=== PATIENT | male | born 1945 | race Caucasian/White ===

== ENCOUNTER 2020-09-14 15:06 | Emergency (ER) | payer MEDICARE, OTHER ==
[2020-09-14] MEDS ORDERED: HYDROmorphone 1 MG/ML Syringe IM ONE (15:18)
[2020-09-14 15:58] VITALS: BP 190/85; PULSE 59
--- NOTE | 2020-09-14 16:02 | CT ---
PROCEDURE INFORMATION: Exam: CT Chest Without Contrast; Diagnostic Exam date and time: 09/14/2020 3:25 PM Age: 75 years old Clinical indication: Injury or trauma; Fall; Blunt trauma (contusions or hematomas); Prior surgery; Additional info: Fall 1 week ago, severe RT chest pain p cough TECHNIQUE: Imaging protocol: Diagnostic computed tomography of the chest without contrast. Radiation optimization: All CT scans at this facility use at least one of these dose optimization techniques: automated exposure control; mA and/or kV adjustment per patient size (includes targeted exams where dose is matched to clinical indication); or iterative reconstruction. COMPARISON: No relevant prior studies available. FINDINGS: Lungs: Unremarkable. No consolidation. No masses. Mild bilateral lower lobe atelectasis or scarring. Pleural spaces: Unremarkable. No pneumothorax. No pleural effusion. Heart: Median sternotomy wires. Coronary artery calcifications.. No cardiomegaly. No pericardial effusion. Pulmonary arteries: Main pulmonary artery, right and left pulmonary arteries upper limits in size. Aorta: Atherosclerotic calcification. Ascending aorta prominent at 3.9 cm. Lymph nodes: Unremarkable. No enlarged lymph nodes. Stomach and bowel: Normal stomach. No dilatation or obstruction. Scattered diverticulosis. Bones/joints: Right nondisplaced right 8th rib fracture. Bridging T5-T12 spondylosis predominating on the right the T6-7 and T 8-9. No acute vertebral body fracture. Soft tissues: Unremarkable. IMPRESSION: 1. Nondisplaced right posterior 8th rib fracture. No lung contusion or pneumothorax. 2. Thoracic spondylosis. 3. Mild basilar atelectasis or scarring. 4. Mild cardiomegaly and pulmonary arteries upper limits in size. Coronary artery calcifications. Median sternotomy wires. 5. Prominent 3.9 cm ascending aorta.
[2020-09-14] MEDS ORDERED: Lidocaine 5% Oint 35.44 GM Tube TOP ONE (16:12)
--- NOTE | 2020-09-14 16:22 | EDM.PDOC ---
"Scribed by Ruma Ravi 09/14/20 [id number] for Ebony Campbell MD ED HPI GENERAL MEDICAL PROBLEM - General Chief Complaint: Chest Pain Stated Complaint: FELL & HURT RIBS Time Seen by Provider: 09/14/20 15:20 Source of Information: Reports: Patient, RN, RN Notes Reviewed History Limitations: Reports: No Limitations - History of Present Illness INITIAL COMMENTS - FREE TEXT/NARRATIVE: Patient presents to ED by POV. States he fell a week ago and injured his ribs. Today he started coughing and had severe pain. No fever or chills. Rates his pain as 9/10. Onset: Today Duration: Getting Worse Location: Reports: Chest Quality: Reports: Ache Severity: Moderate Improves with: Reports: None Worsens with: Reports: None Associated Symptoms: Reports: No Other Symptoms Right Lower Pain Score (Numeric/FACES): 10 - Related Data Allergies Allergy/AdvReac Type Severity Reaction Status Date / Time [id number]-[id number]-[id number] Reductase Allergy Muscle Verified 09/14/20 15:59 Inhibitor Aches Home Meds: Home Meds Aspirin 81 mg PO DAILY 01/19/17 [History] Fish Oil/[place]-3 Fatty Acids [Fish Oil 1,000 MG] 1,000 mg PO DAILY 01/19/17 [History] Gemfibrozil 600 mg PO BID 01/19/17 [History] Multivitamin [Men's Multi-Vitamin] 1 tab PO DAILY 01/19/17 [History] Nitroglycerin [Nitrostat] 0.4 mg SL ASDIRECTED 01/19/17 [History] Ubidecarenone [Co Q-10] 200 mg PO DAILY 01/19/17 [History] glipiZIDE [Glucotrol] 5 mg PO DAILY 01/19/17 [History] Cholecalciferol (Vitamin D3) [Vitamin D3] 1,000 unit PO DAILY 12/21/18 [History] Clopidogrel [Plavix] 75 mg PO DAILY 12/21/18 [History] Insulin Glargine,Hum.Rec.Anlog [Lantus Solostar] 25 units INJECT BEDTIME 12/21/18 [History] Isosorbide Mononitrate [Isosorbide Mononitrate ER] 30 mg PO DAILY 12/21/18 [History] Labetalol [Normodyne] 50 mg PO BID 12/21/18 [History] Melatonin/Pyridoxine HCl (B6) [Melatonin 5 mg Tablet] 5 mg PO BEDTIME 12/21/18 [History] Pravastatin [Pravachol] 80 mg PO BEDTIME 12/21/18 [History] amLODIPine Besylate/Benazepril [Lotrel 10-40 MG] 10 - 40 mg PO DAILY 12/21/18 [History] metFORMIN [Glucophage] 500 mg PO BIDMEALS 12/21/18 [History] Past Medical History HEENT History: Reports: Impaired Vision Other HEENT History: wears glasses Cardiovascular History: Reports: Bypass, CAD, High Cholesterol, Hypertension, [place], PTCA, Stents Respiratory History: Reports: Sleep Apnea Genitourinary History: Reports: Prostate Disorder Neurological History: Reports: CVA Other Neuro History: Carotid stent Endocrine/Metabolic History: Reports: Diabetes, Type II - Past Surgical History HEENT Surgical History: Reports: None Cardiovascular Surgical History: Reports: Coronary Artery Bypass, Coronary Artery Stent Other Cardiovascular Surgeries/Procedures: CABG-2000, Ptca with stent 12/31/2016,10/15/2018, 11/03/2018 Social & Family History - Family History Family Medical History: No Pertinent Family History - Living Situation & Occupation Living situation: Reports: with Spouse Occupation: Retired ED ROS GENERAL - Review of Systems Review Of Systems: Comprehensive ROS is negative, except as noted in HPI. ED EXAM, GENERAL - Physical Exam Exam: See Below Exam Limited By: No Limitations General Appearance: Alert, WD/WN, No Apparent Distress Throat/Mouth: Normal Inspection, Normal Voice, No Airway Compromise Head: Atraumatic, Normocephalic Neck: Normal Inspection, Supple, Non-Tender, Full Range of Motion Respiratory/Chest: No Respiratory Distress, Lungs Clear, No Accessory Muscle Use, Decreased Breath Sounds, Other (focally tender at right posterior and lateral middle-lower ribs). No: Crackles, Rales, Rhonchi, Wheezing, Stridor Cardiovascular: Normal Peripheral Pulses, Regular Rate, Rhythm, No Edema GI/Abdominal: Normal Bowel Sounds, Soft, Non-Tender, No Organomegaly, No Distention, No Abnormal Bruit, No Mass Back Exam: Normal Inspection, Full Range of Motion. No: CVA Tenderness (L), CVA Tenderness (R) Extremities: Normal Inspection, Normal Range of Motion, Non-Tender, Normal Capillary Refill, No Pedal Edema Neurological: Alert, Oriented, CN II-XII Intact, Normal Cognition, Normal Gait, No Motor/Sensory Deficits Psychiatric: Normal Affect, Normal Mood Skin Exam: Warm, Dry, Intact, Normal Color, No Rash Course - Vital Signs Last Recorded V/S: Last Vital Signs Temp 97.4 F 09/14/20 15:54 Pulse 59 L 09/14/20 15:54 Resp 20 09/14/20 15:54 BP 190/85 H 09/14/20 15:54 Pulse Ox 99 09/14/20 15:54 - Orders/Labs/Meds Meds: Medications Discontinued Medications Generic Name Dose Route Start Last Admin Trade Name Freq PRN Reason Stop Dose Admin Hydromorphone HCl 1 mg 09/14/20 15:18 09/14/20 15:22 Dilaudid IM 09/14/20 15:19 1 mg ONETIME ONE Administration Lidocaine HCl 15 gm 09/14/20 16:12 Lidocaine 5% TOP 09/14/20 16:13 ONETIME ONE - Radiology Interpretation Free Text/Narrative:: [facility] Final Radiology Report Call: [phone] assistance Online chat: [email or web address] Name: KAR PAGE Age: 75Years M Date: 09/14/2020 SSN: -- : [id number] Study: CT CHEST WO CONT Requesting Physician: EBONY CAMPBELL Images: [id number] Addl Studies: Provided Clinical History: fall 1 week ago, severe Rt chest pain p cough Contrast: Without Contrast Medium: Contrast Amount: Contrast Method: Page 1 of 2 PROCEDURE INFORMATION: Exam: CT Chest Without Contrast; Diagnostic Exam date and time: 09/14/2020 3:25 PM Age: 75 years old Clinical indication: Injury or trauma; Fall; Blunt trauma (contusions or hematomas); Prior surgery; Additional info: Fall 1 week ago, severe RT chest pain p cough TECHNIQUE: Imaging protocol: Diagnostic computed tomography of the chest without contrast. Radiation optimization: All CT scans at this facility use at least one of these dose optimization techniques: automated exposure control; mA and/or kV adjustment per patient size (includes targeted exams where dose is matched to clinical indication); or iterative reconstruction. COMPARISON: No relevant prior studies available. FINDINGS: Lungs: Unremarkable. No consolidation. No masses. Mild bilateral lower lobe atelectasis or scarring. Pleural spaces: Unremarkable. No pneumothorax. No pleural effusion. Heart: Median sternotomy wires. Coronary artery calcifications.. No cardiomegaly. No pericardial effusion. Pulmonary arteries: Main pulmonary artery, right and left pulmonary arteries upper limits in size. Aorta: Atherosclerotic calcification. Ascending aorta prominent at 3.9 cm. Lymph nodes: Unremarkable. No enlarged lymph nodes. Stomach and bowel: Normal stomach. No dilatation or obstruction. Scattered diverticulosis. Bones/joints: Right nondisplaced right 8th rib fracture. Bridging T5-T12 spondylosis predominating on the right the T6-7 and T 8-9. No acute vertebral body fracture. Soft tissues: Unremarkable. IMPRESSION: KAR PAGE | Final Radiology Report CONFIDENTIALITY STATEMENT This report is intended only for use by the referring physician, and only in accordance with law. If you received this in error, call [phone]. Page 2 of 2 1. Nondisplaced right posterior 8th rib fracture. No lung contusion or pneumothorax. 2. Thoracic spondylosis. 3. Mild basilar atelectasis or scarring. 4. Mild cardiomegaly and pulmonary arteries upper limits in size. Coronary artery calcifications. Median sternotomy wires. 5. Prominent 3.9 cm ascending aorta. Thank you for allowing us to participate in the care of your patient. Dictated and Authenticated by: Jeannette Martínez MD 09/14/2020 4:01 PM Central Time ([place] & [place]) Departure - Departure Time of Disposition: 16:19 Disposition: Home, Self-Care 01 Condition: Good Clinical Impression: Closed fracture of one rib of right side Qualifiers: Encounter type: initial encounter Qualified Code(s): S22.31XA - Fracture of one rib, right side, initial encounter for closed fracture - Discharge Information *PRESCRIPTION DRUG MONITORING PROGRAM REVIEWED*: No *COPY OF PRESCRIPTION DRUG MONITORING REPORT IN PATIENT SONIA: No Instructions: Rib Fracture Forms: ED Department Discharge Additional Instructions: Rx: Hydrocodone APAP 5mg/325mg *Do not drive while taking this medication. Use a stool softener if needed to prevent constipation as a side effect from this medication. Rx: Lidocaine 5% Ointment Deep breathing once every hour while awake to prevent pneumonia. Follow up in clinic if needed. Return to ER if you develop a fever or signs of pneumonia. Sepsis Event Note (ED) - Focused Exam Vital Signs: Vital Signs Temp Pulse Resp BP Pulse Ox 09/14/20 15:54 97.4 F 59 L 20 190/85 H 99 I have read and agree with the documentation that has been completed regarding this visit. By signing this record, I attest that the documentation was completed in my physical presence and is an accurate record of the encounter."
== END 2020-09-14 16:32 | disposition home or self-care (01) ==
LOC: DL.ED 15:06
DX: S22.31XA Fracture of one rib, right side, initial encounter for closed fracture (principal); I25.10 Atherosclerotic heart disease of native coronary artery without angina pectoris; E78.00 Pure hypercholesterolemia, unspecified; I10 Essential (primary) hypertension; I25.2 Old myocardial infarction; E11.9 Type 2 diabetes mellitus without complications; Z79.82 Long term (current) use of aspirin; Z79.02 Long term (current) use of antithrombotics/antiplatelets; Z79.4 Long term (current) use of insulin; Z86.73 Personal history of transient ischemic attack (TIA), and cerebral infarction without residual deficits; Z88.8 Allergy status to other drugs, medicaments and biological substances; Z95.1 Presence of aortocoronary bypass graft; Z95.5 Presence of coronary angioplasty implant and graft; W19.XXXA Unspecified fall, initial encounter
CPT/HCPCS: 71250; 96372; 99283; A9270; J1170